=== PATIENT | female | born 1955 | race Asian ===

== ENCOUNTER 2022-10-31 14:47 | Inpatient (IN) | payer OTHER ==
[~2022-10-31] VITALS: Ht 162.6 cm; Wt 64.0 kg
[2022-10-31 15:00] VITALS: BP 118/84
--- NOTE | 2022-10-31 15:09 | NUR ---
FLU, SANG AND RSV SWABS COLLECTED
[2022-10-31 15:54] LABS: RSV NEGATIVE (NEGATIVE)
[2022-10-31] MEDS ORDERED: ACETAMINOPHEN 325 MG TAB PO ONE (18:05)
[2022-10-31 18:55] LABS: BASOPHILS % (AUTO) 0.1 % (0.0-2.0); EOSINOPHILS % (AUTO) 0.1 % (0.0-4.0); HEMATOCRIT 36.9 % (36-48); HEMOGLOBIN 12.5 g/dL (12.0-16.0); LYMPHOCYTES # (AUTO) 0.3 K/uL (2.5-16.5); LYMPHOCYTES % (AUTO) 4.3 % (20.5-51.1); MEAN CORPUSCULAR HEMOGLOBIN 31 pg (27-31); MEAN CORPUSCULAR HGB CONC 34 g/dL (33-37); MEAN CORPUSCULAR VOLUME 91.3 fL (80-94); MONOCYTES # (AUTO) 0.7 K/uL (0.8-1.0); MONOCYTES % (AUTO) 9.7 % (1.7-9.3); NEUTROPHILS # (AUTO) 6.4 K/uL (1.8-7.7); NEUTROPHILS % (AUTO) 85.8 % (42.2-75.2); PLATELET COUNT (AUTO) 133 K/uL (140-450); RED BLOOD CELL COUNT(AUTO) 4.05 MIL/uL (4.20-5.40); WHITE BLOOD COUNT (AUTO) 7.5 K/uL (4.8-10.8)
[2022-10-31 19:15] LABS: ALBUMIN 2.8 g/dL (3.4-5.0); ANION GAP 15.8 (8-16); POTASSIUM 3.8 mmol/L (3.5-5.1); TOTAL BILIRUBIN 0.7 mg/dL (0.0-1.0)
[2022-10-31] MEDS ORDERED: LACTATED RINGERS 1,000 ML IV STA (21:21)
[2022-10-31 21:43] LABS: APPEARANCE,URINE CLEAR (CLEAR); BILIRUBIN,URINE NEGATIVE (NEGATIVE); BLOOD, URINE NEGATIVE (NEGATIVE); COLOR,URINE YELLOW (YELLOW); LEUKOCYTE ESTERASE ,URINE 2+ (NEGATIVE); NITRITE, URINE POSITIVE (NEGATIVE); UGLUCOSE NEGATIVE (NEGATIVE)
[2022-10-31 21:55] LABS: OTHER CASTS, URINE None Seen /LPF (None Seen)
[2022-10-31] MEDS ORDERED: ACETAMINOPHEN 325 MG TAB PO PRN (22:05)
[2022-10-31] MEDS ORDERED: MORPHINE SULFATE 2 MG/ML SYR IVP PRN (22:05)
[2022-10-31] MEDS ORDERED: DOCUSATE SODIUM 100 MG GELCAP PO PRN (22:05)
[2022-10-31] MEDS ORDERED: LORazepam 2 MG/ML VIAL IVP PRN (22:05)
[2022-10-31] MEDS ORDERED: POTASSIUM CHLORIDE 10 MEQ TABER PO PRN (22:05)
[2022-10-31] MEDS ORDERED: MAG SULF 2000 MG/WATER PREMIX 50 ML IV PRN (22:05)
[2022-10-31] MEDS ORDERED: ONDANSETRON 4 MG/2 ML VIAL IVP PRN (22:05)
[2022-10-31] MEDS ORDERED: ZOLPIDEM 10 MG TAB PO PRN (22:05)
[2022-10-31] MEDS ORDERED: cefTRIAXone 1,000 MG VIAL ONE (22:23)
[2022-11-01] MEDS ORDERED: ATOR10TA PO (02:25)
[2022-11-01] MEDS ORDERED: ASCO-786 PO (02:25)
[2022-11-01] MEDS ORDERED: CEL250 PO (02:25)
[2022-11-01] MEDS ORDERED: TACR1CAP10 PO (02:25)
[2022-11-01] MEDS ORDERED: PRED5TAB8 PO (02:25)
[2022-11-01] MEDS ORDERED: ASPI-1822 PO (02:25)
[2022-11-01 05:55] LABS: ANION GAP 14.3 (8-16); CARBON DIOXIDE 26.2 mmol/L (21-32); CREATININE 1.6 mg/dL (0.6-1.3); POTASSIUM 3.5 mmol/L (3.5-5.1)
[2022-11-01 06:25] LABS: BASOPHILS % (AUTO) 0.1 % (0.0-2.0); EOSINOPHILS % (AUTO) 0.4 % (0.0-4.0); HEMATOCRIT 35.5 % (36-48); HEMOGLOBIN 11.8 g/dL (12.0-16.0); LYMPHOCYTES # (AUTO) 0.8 K/uL (2.5-16.5); LYMPHOCYTES % (AUTO) 10.8 % (20.5-51.1); MEAN CORPUSCULAR HEMOGLOBIN 30 pg (27-31); MEAN CORPUSCULAR HGB CONC 33 g/dL (33-37); MEAN CORPUSCULAR VOLUME 91.1 fL (80-94); MONOCYTES % (AUTO) 13.8 % (1.7-9.3); NEUTROPHILS # (AUTO) 5.6 K/uL (1.8-7.7); NEUTROPHILS % (AUTO) 74.9 % (42.2-75.2); PLATELET COUNT (AUTO) 128 K/uL (140-450); RED CELL DISTRIBUTION WIDTH 13.9 % (11.6-13.7); WHITE BLOOD COUNT (AUTO) 7.4 K/uL (4.8-10.8)
--- NOTE | 2022-11-01 08:48 | NUR ---
Patient appears to be resting comfortably in bed. Vital Signs within normal limits. Respirations even and unlabored.
[2022-11-01] MEDS: predniSONE 5 MG TAB PO SCH (12:25)
[2022-11-01] MEDS ORDERED: LACTATED RINGERS 1,000 ML IV SCH (12:50)
--- NOTE | 2022-11-01 12:58 | NUR ---
per pharmacy, pt will have LR for fluids, but fluids will need to be stopped and flushed prior and after ceftriaxone dose due to incompatibility.
[2022-11-01] MEDS: NACL 0.9% 1,000 ML IV SCH (13:24)
--- NOTE | 2022-11-01 16:30 | NUR ---
PATIENT HAS BEEN SCREENED AND CATEGORIZED MODERATE NUTRITION RISK. PATIENT WILL BE SEEN WITHIN 3-5 DAYS OF ADMISSION. 11/03/[address]
--- NOTE | 2022-11-01 18:30 | NUR ---
dinner tray left at bedside.
--- NOTE | 2022-11-01 20:15 | NUR ---
REPORT CALLED TO MAEGAN GRANADO.
--- NOTE | 2022-11-01 20:40 | NUR ---
transfered to room 104a via w/c
--- NOTE | 2022-11-01 20:50 | NUR ---
PT ARRIVED TO [facility] 104A BED. NO S/S OF DISTRESS. ORIENTED TO ROOM. IV PULLED OUT DURING TRANSPORT. CALL LIGHT IN REACH. ALL SAFETY MEASURES IN PLACE. WILL INSERT NEW IV. REPORT RECEIVED FROM ED NURSE
[2022-11-01 21:00] VITALS: BP 147/65
[2022-11-01] MEDS ORDERED: TACROLIMUS 0.5 MG CAP PO SCH (21:00)
[2022-11-01] MEDS ORDERED: MYCOPHENOLATE 250 MG CAP PO SCH (21:00)
[2022-11-01] MEDS: TACROLIMUS 1 MG CAP PO SCH (21:13)
--- NOTE | 2022-11-01 21:32 | NUR ---
PT STATES NEEDING SLEEPING PILL FOR INSOMNIA. WILL MEDICATE PER MD ORDER
--- NOTE | 2022-11-01 23:50 | NUR ---
PT RESTING IN BED. NO S/S OF DISTRESS. ALL SAFETY MEASURES IN PLACE. CALL LIGHT IN REACH. DENIES PAIN AT THIS TIME
--- NOTE | 2022-11-02 02:24 | NUR ---
PT RESTING IN BED, EYES CLOSED. NO S/S OF DISTRESS. CALL LIGHT IN REACH. ALL SAFETY MEASURES IN PLACE. IV FLUIDS RUNNING PER MD ORDER
--- NOTE | 2022-11-02 05:56 | NUR ---
IV FLUSHED AND RUNNING PER MD ORDER. NO S/S OF DISTRESS. CALL LIGHT IN REACH. ALL SAFETY MEASURES IN PLACE.
[2022-11-02 06:00] VITALS: BP 150/73
--- NOTE | 2022-11-02 06:58 | NUR ---
ASSISTED PT TO BR. PT NOW SITTING IN CHAIR BY SINK FOR ORAL HYGIENE. CALL LIGHT IN REACH. ALL SAFETY MEASURES IN PLACE
--- NOTE | 2022-11-02 07:21 | NUR ---
ENDORSED PT TO DAY SHIFT NURSE. NO S/S OF DISTRESS. CALL LIGHT IN REACH. ALL SAFETY MEASURES IN PLACE
[2022-11-02 07:24] LABS: ANION GAP 14.1 (8-16); CARBON DIOXIDE 28.5 mmol/L (21-32); CREATININE 1.4 mg/dL (0.6-1.3); POTASSIUM 3.6 mmol/L (3.5-5.1)
[2022-11-02 07:27] LABS: BASOPHILS % (AUTO) 0.3 % (0.0-2.0); EOSINOPHILS % (AUTO) 0.6 % (0.0-4.0); HEMATOCRIT 35.3 % (36-48); HEMOGLOBIN 11.9 g/dL (12.0-16.0); LYMPHOCYTES # (AUTO) 1.5 K/uL (2.5-16.5); LYMPHOCYTES % (AUTO) 18.4 % (20.5-51.1); MEAN CORPUSCULAR HEMOGLOBIN 31 pg (27-31); MEAN CORPUSCULAR HGB CONC 34 g/dL (33-37); MEAN CORPUSCULAR VOLUME 91.7 fL (80-94); MONOCYTES # (AUTO) 1.4 K/uL (0.8-1.0); MONOCYTES % (AUTO) 17.2 % (1.7-9.3); NEUTROPHILS # (AUTO) 5.1 K/uL (1.8-7.7); NEUTROPHILS % (AUTO) 63.5 % (42.2-75.2); PLATELET COUNT (AUTO) 168 K/uL (140-450); RED BLOOD CELL COUNT(AUTO) 3.85 MIL/uL (4.20-5.40); RED CELL DISTRIBUTION WIDTH 14.4 % (11.6-13.7)
[2022-11-02] MEDS: TACROLIMUS 1 MG CAP PO SCH ×2 (09:31→20:40)
[2022-11-02] MEDS: NACL 0.9% 1,000 ML IV SCH (09:31)
[2022-11-02] MEDS: predniSONE 5 MG TAB PO SCH (09:31)
[2022-11-02 15:00] VITALS: BP 135/72
--- NOTE | 2022-11-02 16:18 | NUR ---
DC PLANNING SW MET WITH PT AT BEDSIDE TO COMPLETE ASSESSMENT. PT REPORTS RESIDING IN A SINGLE STORY HOME WITH HER FAMILY AT THE ADDRESS LISTED ON FILE. PT IDENTIFIED JENNI SHELL, DAUGHTER, AND MICHAEL SHELL, DAUGHTER, EMERGENCY CONTACT. PT DENIES HAVING AD IN PLACE AND DECLINED AD OFFERED BY SW. PT REPORTS MEDICATION COMPLIANCE AND DENIES BARRIERS IN ACCESS TO NEEDED MEDICATIONS. PT REPORTS RECEIVING MEDICATIONS FROM [facility] ON [address] IN [place], WHEN NEEDED. PT REPORTS SHE ALSO HAS MEDICATIONS THAT ARE DELIVERED TO HER HOME. PT REPORTS BEING INDEPENDENT IN ALL ACTIVITIES AND DENIES USE OF DME. PT REPORTS COMPLETING ALL ADLS INDEPENDENTLY. PT DENIES MH/NAVA, HX OF DIABETES, HH, SNF PLACEMENT. PT REPORTS HX OF DIALYSIS, PT REPORTS RECEIVING DIALYSIS 6 YRS AGO FOR 3.5 YRS BEFORE RECEIVING KIDNEY TRANSPLANT. PT REPORTS DC PLAN IS TO RETURN HOME WITH FAMILY PROVIDING TRANSPORTATION WHEN MEDICALLY STABLE. SW INQUIRED ON ADDITIONAL RESOURCES NEEDED, PT DECLINED AT THIS TIME. Addendum: 11/02/22 at 1619 by Marifer CORDOVA Amended: Links added.
--- NOTE | 2022-11-02 19:27 | NUR ---
ENDORSE PATIENT TO PM SHIFT NURSE WHILE DAUGHTER AT BEDSIDE, PIV R. HAND INFUSING NS @50ML/HR.
--- NOTE | 2022-11-02 20:00 | NUR ---
RECEIVED BEDSIDE REPORT FROM DAY RN FOR CONTINUITY OF CARE. RECEIVED PT A/A/AOX4, SITTING UP IN BED, DAUGHTER AT THE BEDSIDE. PT DENIES CHEST PAIN, SOB , PALPITATIONS AND DIZZINESS. IVF INFUSING ORDERED. PATIENT IS NOT ON ANY DISTRESS AND NO COMPLAIN AT THIS TIME. CALL LIGHT WITHIN REACH. WILL CONTINUE POC AND MONITORING.
--- NOTE | 2022-11-02 22:00 | NUR ---
ADMINISTERED ALL DUE MEDS ORDERED EARLIER. NO ADVERSE DRUG REACTION NOTED AND NO COMPLAIN AT THIS TIME. WILL CONTINUE OBSERVATION.
[2022-11-03] VITALS: BP 134/61
--- NOTE | 2022-11-03 | NUR ---
PATIENT VITAL SIGNS STABLE, AFEBRILE ,SATING 99% ON RA. NO COMPLAIN OF PAIN AT THIS TIME.CALL LIGHT WITHIN REACH.
--- NOTE | 2022-11-03 02:05 | NUR ---
PATIENT ASLEEP AT THIS TIME. VISIBLE CHEST RISE AND FALL NOTED. SAFETY MEASURES IN PLACED.
--- NOTE | 2022-11-03 04:00 | NUR ---
PATIENT GOT UP AND WENT TO THE BATHROOM AND TOLERATED IT WELL. INSTRUCTED PT TO BE CAREFUL AND TO CALL FOR ASSISTANCE AT ALL TIMES. PATIENT FELL LAST NIGHT AND SUSTAINED A BRUISE ON THE RT ORBITAL AREA AND FACE. CALL LIGHT WITHIN REACH.
[2022-11-03] MEDS: NACL 0.9% 1,000 ML IV SCH (04:23)
--- NOTE | 2022-11-03 06:16 | NUR ---
NO ACUTE EVENTS THROUGHOUT THE NIGHT. PATIENT STABLE AND NOT ON ANY DISTRESS. ALL NEEDS ATTENDED. WILL ENDORSE THE PATIENT TO THE ONCOMING RN FOR CONTINUITY OF CARE.
[2022-11-03 07:23] LABS: BASOPHILS % (AUTO) 0.5 % (0.0-2.0); EOSINOPHILS # (AUTO) 0.1 K/uL (0-0.4); EOSINOPHILS % (AUTO) 0.7 % (0.0-4.0); HEMATOCRIT 35.5 % (36-48); HEMOGLOBIN 11.9 g/dL (12.0-16.0); LYMPHOCYTES # (AUTO) 1.5 K/uL (2.5-16.5); LYMPHOCYTES % (AUTO) 19.2 % (20.5-51.1); MEAN CORPUSCULAR HEMOGLOBIN 31 pg (27-31); MEAN CORPUSCULAR HGB CONC 34 g/dL (33-37); MEAN CORPUSCULAR VOLUME 91.3 fL (80-94); MONOCYTES # (AUTO) 1.1 K/uL (0.8-1.0); MONOCYTES % (AUTO) 13.7 % (1.7-9.3); NEUTROPHILS # (AUTO) 5.2 K/uL (1.8-7.7); NEUTROPHILS % (AUTO) 65.9 % (42.2-75.2); PLATELET COUNT (AUTO) 230 K/uL (140-450); RED BLOOD CELL COUNT(AUTO) 3.89 MIL/uL (4.20-5.40); RED CELL DISTRIBUTION WIDTH 14.2 % (11.6-13.7); WHITE BLOOD COUNT (AUTO) 7.9 K/uL (4.8-10.8)
--- NOTE | 2022-11-03 07:23 | NUR ---
ENDORSED PATIENT TO THE ONCOMING NURSE FOR CONTINUITY OF CARE. PATIENT STABLE. SIGNING OFF.
[2022-11-03 07:26] LABS: ANION GAP 14.7 (8-16); CARBON DIOXIDE 26.7 mmol/L (21-32); CREATININE 1.3 mg/dL (0.6-1.3); POTASSIUM 3.4 mmol/L (3.5-5.1)
--- NOTE | 2022-11-03 07:54 | NUR ---
got report from the night nurse, pt is sleeping no SOB [id number]
[2022-11-03 08:00] VITALS: BP 135/70
[2022-11-03] MEDS ORDERED: MAGNESIUM OXIDE 400 MG TAB PO SCH (09:00)
[2022-11-03] MEDS ORDERED: POLYETHYLENE GLYCOL 17 GM/PKT PO SCH (09:00)
[2022-11-03] MEDS: predniSONE 5 MG TAB PO SCH (09:02)
[2022-11-03] MEDS: TACROLIMUS 1 MG CAP PO SCH (09:02)
[2022-11-03] MEDS ORDERED: NITR100C7 PO (09:23)
[2022-11-03 10:50] VITALS: BP 135/70
[2022-11-03 11:13] VITALS: BP 135/70
--- NOTE | 2022-11-03 11:54 | NUR ---
PT DISCHARGED HOME, DISCHARGE INSTRUCTION IS GIVEN , ID AND IV LINE DISCONTINUED. PT WALKED WITH HER OUT OF UNIT WITH OUT ANY DISCOMFORT.[id number]
[2022-11-05 06:07] LABS: TACROLIMUS 12.1 ng/mL (2.0-20.0)
== END 2022-11-03 11:50 | disposition home or self-care (01) | DRG 682 ==
LOC: MED 14:47 → MMU 22:02 → MTU 11-01 19:06
PROVIDERS: ADMIT Family Medicine; ATTEND Family Medicine
DX: N17.0 Acute kidney failure with tubular necrosis (principal); E43 Unspecified severe protein-calorie malnutrition; R65.11 Systemic inflammatory response syndrome (SIRS) of non-infectious origin with acute organ dysfunction; N39.0 Urinary tract infection, site not specified; Z94.0 Kidney transplant status; G93.89 Other specified disorders of brain; E86.0 Dehydration; G47.00 Insomnia, unspecified; K59.00 Constipation, unspecified; B34.9 Viral infection, unspecified; Z20.822 Contact with and (suspected) exposure to COVID-19; E83.51 Hypocalcemia; Z68.24 Body mass index [BMI] 24.0-24.9, adult; Z83.3 Family history of diabetes mellitus; Z82.3 Family history of stroke; Z82.49 Family history of ischemic heart disease and other diseases of the circulatory system
CPT/HCPCS: 36415; 70450; 71045; 76770; 80048; 80053; 81001; 83735; 83880; 84484; 85025; 87081; 87086; 87420; 93005; 96365; 99285; J0696; J3475; J7060; J7120; J7507; J7512; Q0092